=== PATIENT | male | born 1995 | race American Indian/Alaskan Native ===

== ENCOUNTER 2021-01-19 20:32 | Emergency (ER) | payer SELFPAY ==
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
--- NOTE | 2021-01-19 21:23 | XRay Report ---
Right hand 3 views INDICATION: Hand pain FINDINGS: MCP joints and IP joints appear normal. No foreign body seen in soft tissues. No acute frac ture. Signer Name: Gabriel Duque MD Signed: 01/19/2021 9:18 PM Workstation Name: [id number]
[2021-01-19 21:24] VITALS: BP 103/66
[2021-01-19] MEDS ORDERED: LIDOCAINE (2%) 20 MG/1 ML VIAL 20 ML MDV INFILTRATI STA (22:33)
== END 2021-01-19 23:10 | disposition home or self-care (01) ==
LOC: ED 20:32
DX: S61.411A Laceration without foreign body of right hand, initial encounter (principal); M79.641 Pain in right hand; Z79.899 Other long term (current) drug therapy; W25.XXXA Contact with sharp glass, initial encounter; Y93.89 Activity, other specified; Y92.098 Other place in other non-institutional residence as the place of occurrence of the external cause; Y99.8 Other external cause status

== ENCOUNTER 2022-03-11 15:41 | Emergency (ER) | payer SELFPAY ==
[2022-03-11 16:14] VITALS: BP 144/90
--- NOTE | 2022-03-11 17:55 | Emergency Department Report ---
ED ENT HPI - General Chief complaint: Dental/Oral Stated complaint: GUM INFECTED,SORE Time Seen by Provider: 03/11/22 17:41 Source: patient Mode of arrival: Ambulatory Limitations: No Limitations - History of Present Illness Initial comments: Patient is a 32-year-old male who presents stating that he broke one of his teeth in the right mandibular molar area several months ago and it keeps getting infected. Now his gums are sore. He states that he has been given a list of dentists but no one will take him. Denies any fevers chills nausea vomiting or fatigue no stiff neck. MD complaint: tooth pain Worsens with: other (Cold air) Associated Symptoms: toothache. denies: fever, cough, gum swelling, pain with swallowing, sore throat, tinnitus, hearing loss, discharge from ear, rhinorrhea - Related Data Previous Rx's Medication Instructions Recorded Last Taken Type cephALEXin [Keflex] 500 mg PO Q8HR #21 cap 01/19/21 Unknown Rx Ibuprofen [Motrin 600 MG tab] 600 mg PO Q8H PRN #30 tablet 03/11/22 Unknown Rx Penicillin V Potassium 500 mg PO QID #28 tab 03/11/22 Unknown Rx Allergies Allergy/AdvReac Type Severity Reaction Status Date / Time No Known Allergies Allergy Verified 03/11/22 16:11 ED Dental HPI - General Chief complaint: Dental/Oral Stated complaint: GUM INFECTED,SORE Time Seen by Provider: 03/11/22 17:41 Source: patient Mode of arrival: Ambulatory Limitations: No Limitations - Related Data Previous Rx's Medication Instructions Recorded Last Taken Type cephALEXin [Keflex] 500 mg PO Q8HR #21 cap 01/19/21 Unknown Rx Ibuprofen [Motrin 600 MG tab] 600 mg PO Q8H PRN #30 tablet 03/11/22 Unknown Rx Penicillin V Potassium 500 mg PO QID #28 tab 03/11/22 Unknown Rx Allergies Allergy/AdvReac Type Severity Reaction Status Date / Time No Known Allergies Allergy Verified 03/11/22 16:11 ED Review of Systems ROS: Stated complaint: GUM INFECTED,SORE Other details as noted in HPI Constitutional: denies: chills, fever Eyes: denies: eye pain, eye discharge, vision change ENT: as per HPI. denies: ear pain, throat pain Respiratory: denies: cough, shortness of breath, wheezing Cardiovascular: denies: chest pain, palpitations Endocrine: no symptoms reported Gastrointestinal: denies: abdominal pain, nausea, diarrhea Genitourinary: denies: urgency, dysuria Musculoskeletal: denies: back pain, joint swelling, arthralgia Skin: denies: rash, lesions Neurological: denies: headache, weakness, paresthesias Psychiatric: denies: anxiety, depression Hematological/Lymphatic: denies: easy bleeding, easy bruising ED Past Medical Hx - Past Medical History Additional medical history: undetectable HIV - Surgical History Past Surgical History?: No - Medications Home Medications: Home Medications Medication Instructions Recorded Confirmed Last Taken Type cephALEXin [Keflex] 500 mg PO Q8HR #21 cap 01/19/21 Unknown Rx Ibuprofen [Motrin 600 MG tab] 600 mg PO Q8H PRN #30 tablet 03/11/22 Unknown Rx Penicillin V Potassium 500 mg PO QID #28 tab 03/11/22 Unknown Rx ED Physical Exam - General Limitations: No Limitations General appearance: alert, in no apparent distress - Head Head exam: Present: atraumatic, normocephalic - Eye Eye exam: Present: normal appearance - ENT ENT exam: Present: mucous membranes moist, other (Right mandibular first molar partially broken with minimal surrounding gingival erythema. No swelling or fluctuance.) - Neck Neck exam: Present: normal inspection - Respiratory Respiratory exam: Present: normal lung sounds bilaterally. Absent: respiratory distress - Cardiovascular Cardiovascular Exam: Present: regular rate, normal rhythm. Absent: systolic murmur, diastolic murmur, rubs, gallop - GI/Abdominal GI/Abdominal exam: Present: soft, normal bowel sounds - Rectal Rectal exam: Present: deferred - Extremities Exam Extremities exam: Present: normal inspection - Back Exam Back exam: Present: normal inspection - Neurological Exam Neurological exam: Present: alert, oriented X3 - Psychiatric Psychiatric exam: Present: normal affect, normal mood - Skin Skin exam: Present: warm, dry, intact, normal color. Absent: rash ED Course Vital Signs 03/11/22 16:10 Temperature 99.1 F Pulse Rate 59 L Respiratory 18 Rate Blood Pressure 144/90 O2 Sat by Pulse 99 Oximetry ED Medical Decision Making - Medical Decision Making 26-year-old male with history of broken tooth and unable to get it definitively treated due to financial constraints. Recommend looking for dental school that might be willing to extract for him. Critical care attestation.: If time is entered above; I have spent that time in minutes in the direct care of this critically ill patient, excluding procedure time. ED Disposition Clinical Impression: Dental infection, Gingivitis Disposition: HOME / SELF CARE / HOMELESS Is pt being admited?: No Condition: Stable Instructions: Preventive Dental Care, Adult Additional Instructions: Antibiotics. Warm salt water swish and spit at least 4 times daily. Follow-up with dentist as previously recommended. Also recommend calling [facility] at [phone] and they may be able to help you. Prescriptions: Ibuprofen [Motrin 600 MG tab] 600 mg PO Q8H PRN #30 tablet PRN Reason: Pain Penicillin V Potassium 500 mg PO QID #28 tab Forms: Work/School Release Form(ED) Time of Disposition: 18:06
[2022-03-11] MEDS ORDERED: HYDROcodone/ACETAMINOPHEN 7.5-325MG TAB PO ONE (18:05)
== END 2022-03-11 18:14 | disposition home or self-care (01) ==
LOC: ED 15:41
DX: K04.7 Periapical abscess without sinus (principal); K05.00 Acute gingivitis, plaque induced
CPT/HCPCS: 99282